=== PATIENT | male | born 1945 | race Caucasian/White ===

== ENCOUNTER → 2017-05-14 | Outpatient (REF) ==
[~2017-05-14] MED LIST: PREVACID 15MG15 M1; ZYRTEC 10MG10 MG
== END ==
LOC: ZLAB.WCH 14:37
PROVIDERS: Family Medicine
DX: Z01.89 Encounter for other specified special examinations (principal)

== ENCOUNTER → 2018-02-11 | Outpatient (REF) | LOC: ZLAB.WCH 15:55 | DX: Z01.89 Encounter for other specified special examinations (principal) | CPT/HCPCS: G0103 ==

== ENCOUNTER 2020-08-25 09:30 | Day surgery (SDC) | payer MEDICARE ==
[2020-08-25] VITALS (7 sets, daily range): BP systolic 108–121; BP diastolic 65–71; PULSE 54–68; TEMP 97.7–98
[~2020-08-25] VITALS: Ht 180.3 cm; Wt 87.9 kg
[2020-08-25 08:40] LABS: BASO % 0.4 % (0.0-2.0); EOS # 0.1 (0.0-0.7); GRAN # 2.6 (1.4-6.5); GRAN % 52.8 % (42.2-75.2); HEMATOCRIT 43.1 % (42.0-52.0); HEMOGLOBIN 14.6 g/dl (13.5-18.0); LYMPH # 1.7 (1.2-3.4); MEAN CELL VOLUME 92 fl (80.0-100.0); MEAN CORPUSCULAR HEMOGLOBIN 31 pg (27.0-31.0); MEAN CORPUSCULAR HGB CONC 34 g/dl (33.0-37.0); MEAN PLATELET VOLUME 11.1 fl (7.4-10.4); MONO # 0.6 (0.1-0.6); MONO % 11.4 % (1.7-9.3); PLATELET COUNT 169 K/mm3 (130-400); RED BLOOD COUNT 4.67 M/mm3 (4.20-5.60); REDCELL DISTRIBUTION WIDTH-CV 14.4 % (11.5-14.5)
[2020-08-25 08:49] LABS: CALCIUM 8.9 mg/dL (8.4-10.2); CREATININE, serum 1.09 (0.66-1.25); POTASSIUM 3.9 mmol/L (3.4-5.0)
--- NOTE | 2020-08-25 10:01 | NUR ---
Patient taken via cart to OR for scheduled surgery by OLYA Vail.
[2020-08-25] MEDS ORDERED: ULTRAM 50MG TAB50 MG PO (12:05)
--- NOTE | 2020-08-25 12:30 | NUR ---
Pt returned to [facility] [place] bay 5 from PACU via cart. VSS-see flowsheet. Pt oriented but drowsy. X3 surgical incisions to abdomen noted with odom set, clean, dry and intact. Pt requested to rest at this time. Denied complaints or needs. Side rails up. VS monitor in place for post op vitals.
--- NOTE | 2020-08-25 12:45 | NUR ---
VS remain stable. Pt opened eyes as this RN entered room. Denied needs at this time. Continues to rest with side rails up and call light in reach.
--- NOTE | 2020-08-25 13:56 | NUR ---
Pt has tolerated drinking cranberry juice and given a vanilla pudding per request. HOB elevated to eat, pt able to scoot self up in bed without difficulty. Denied needs or complaints at this time. VS remain stable-see flowsheet.
--- NOTE | 2020-08-25 14:24 | NUR ---
Pt sat up on side of bed and stood at bedside without difficulty. Denies complaints. Tolerated pudding and given chicken noodle soup per request. Sitting with HOB elevated eating soup.
--- NOTE | 2020-08-25 15:10 | NUR ---
Patient assisted up to the bathroom and is able to void and returns to room. States that his urine was blood tinged and had burning with urination. Informed of having cytoscopy in surgery to look at bladder. Voices understanding of this. Instructed to force fluids to help clear urine and call the office if unable to empty bladder.
--- NOTE | 2020-08-25 15:15 | NUR ---
IV discontinued and site free of redness. Patient dresses self. Does well with movement.
--- NOTE | 2020-08-25 15:30 | NUR ---
Dismissal instructions given and signed. Patient voices understanding of these. Informed that Ultram script was sent to [facility].
--- NOTE | 2020-08-25 15:35 | NUR ---
Patient dismissed to home driven by spouse and taken to the front door per wheelchair by this RN and assisted into vehicle with dismissal instructions in hand.
== END 2020-08-25 15:35 | disposition home or self-care (01) ==
LOC: SDCO 09:30
PROVIDERS: Surgery
DX: K40.91 Unilateral inguinal hernia, without obstruction or gangrene, recurrent (principal); G47.33 Obstructive sleep apnea (adult) (pediatric); K21.9 Gastro-esophageal reflux disease without esophagitis; Z79.899 Other long term (current) drug therapy; Z20.822 Contact with and (suspected) exposure to COVID-19; Z88.1 Allergy status to other antibiotic agents; Z88.0 Allergy status to penicillin
CPT/HCPCS: C1781; J0690; J1100; J1885; J2405; J2704; J3010; J7120

== ENCOUNTER 2024-03-31 07:28 | Day surgery (SDC) | payer MEDICARE, BC ==
[~2024-03-31] VITALS: Ht 180.3 cm; Wt 100.7 kg
[~2024-03-31 07:28] MED LIST changes: +LR 1,000 ML IV SCH; +Ondansetron 4 MG/2 ML VIAL IV PRN; +ULTRAM 50MG TAB50 MG PO
[2024-03-31] MEDS ORDERED: PROTONIX 40MG T40 MG PO (08:02)
[2024-03-31] MEDS ORDERED: CENTRUM SILVER1 TAB PO (08:10)
[2024-03-31] MEDS ORDERED: CLARITIN 1010 MG/TAB PO (08:11)
[2024-03-31] MEDS ORDERED: COLACE 100100 MG/CAP PO (08:11)
[2024-03-31] MEDS ORDERED: PROOMEGA PO (08:12)
[2024-03-31 08:24] VITALS: BP 127/82; PULSE 60; TEMP 97
[2024-03-31 09:50] VITALS: TEMP 97
[2024-03-31 10:05] VITALS: BP 109/68; PULSE 54
[2024-03-31 10:20] VITALS: BP 100/68; PULSE 51
--- NOTE | 2024-03-31 10:25 | NUR ---
1005 PATIENT RETUR[place] TO [facility] [facility] [place]. PT AWAKE AND ALERT. RESPIRATIONS UNLABORED. AMBULATED TO RECLINER CHAIR WITH 2:1 SBA. PT DENIES NAUSEA OR ABDOMINAL PAIN. HOOKED UP TO MONITOR AND VS OBTAINED. CALL LIGHT AT SIDE AND PRESENT. 1010 PATIENT TOLERATING HOT TEA, WATER AND BLUEBERRY MUFFIN, VANILLA ICE CREAM WITHOUT NAUSEA OR DIFFICULTY SWALLOWING. 1025 DR. LEBRON IN ROOM SPEAKING WITH PATIENT. 1035 D/C INSTRUCTIONS REVIEWED WITH PATIENT. PT VERBALIZED UNDERSTANDING AND A COPY OF INSTRUCTIONS PROVIDED IN D/C FOLDER. 1045 PATIENT DRESSES SELF. 1100 PATIENT DISCHARGED FROM UNIT VIA W/C TO A PERSONAL VEHICLE. PT LEFT HOSPITAL IN STABLE CONDITION.
[2024-03-31 10:35] VITALS: BP 102/47; PULSE 53
== END 2024-03-31 11:00 | disposition home or self-care (01) ==
LOC: SDCO 07:28
DX: K31.7 Polyp of stomach and duodenum (principal); K21.9 Gastro-esophageal reflux disease without esophagitis; K31.89 Other diseases of stomach and duodenum; K44.9 Diaphragmatic hernia without obstruction or gangrene; Z12.11 Encounter for screening for malignant neoplasm of colon; Z86.010 Personal history of colon polyps; K64.0 First degree hemorrhoids; Q43.8 Other specified congenital malformations of intestine
CPT/HCPCS: 43239; G0105; J2704; J7120